=== PATIENT | male | born 1980 | race Caucasian/White ===

== ENCOUNTER 2016-12-20 05:56 | Emergency (ER) | payer SELFPAY ==
[~2016-12-20] VITALS: Ht 190.5 cm; Wt 130.0 kg
[~2016-12-20 05:56] MED LIST: ALBU8I INH; AMOX500T PO; IBUP400T20 PO; MEDR4PAK3 PO
[2016-12-20 06:09] VITALS: BP 161/107; PULSE 94; RESP 20; TEMP 98; O2SAT 96
[2016-12-20] MEDS ORDERED: HYDROmorphone HCL PF 1 MG/ML VIAL IV PUSH ONE (06:30)
[2016-12-20] MEDS ORDERED: ONDANSETRON HCL 4 MG/2 ML VIAL IVP ONE (06:30)
[2016-12-20] MEDS ORDERED: SODIUM CHLOR 0.9% 1000 ML INJ 1,000 ML IV SCH (06:30)
[2016-12-20] MEDS ORDERED: SODIUM CHLORIDE 0.9% FLUSH 5 ML FLUSH IVF PRN (06:30)
[2016-12-20 06:32] VITALS: O2SAT 96
--- NOTE | 2016-12-20 06:32 | PD ---
HPI Chief Complaint: Musculoskeletal Complaint Time Seen by Provider: 06:30 Travel History International Travel<30 days: No Contact w/Intl Traveler<30days: No Traveled to known affect area: No History of Present Illness HPI 36-year-old male presents to the emergency department for complaint of sudden onset right sided chest discomfort and shortness of breath. Patient denies history of DVT or PE. Patient denies recent long distance travel protracted bedrest her surgical procedure. Patient's had no recent swelling of the lower extremities, no hemoptysis and prior to this morning no pleuritic chest pain. Patient states he felt completely normal last evening prior to going to bed. Patient states that it was a taco Sunday, today and did drink alcoholic beverages. No prior history of gallbladder disease peptic ulcer disease gastritis or pancreatitis. Patient rates pain as 7/10 in intensity. Patient denies any fever or chills. No hematemesis no coffee-ground emesis no bilious emesis. Last bowel movement was yesterday and normal for him. No flank pain dysuria frequency or hematuria. No prior history of kidney stones. Patient denies any abdominal surgeries. Patient also denies known history of CAD, hypertension, dyslipidemia, diabetes, family history premature onset cardiac disease. Patient does admit to tobacco use alcohol use and occasional marijuana use. Patient is unable to identify exacerbating or alleviating factors. Brother with history of DVT after surgery. [facility] Past Medical History Narrative Medical Alcohol use tobacco use marijuana use; nursing notes reviewed Medical History: Denies Significant Hx Diminished Hearing: No Tetanus Vaccination: Unknown Influenza Vaccination: No Past Surgical History Surgical History: No Previous Surgery Social History Alcohol Use: Yes (Occasionally) Tobacco Use: Yes (1 ppd cigarettes) Substance Use: Yes (Leana ) Allergies-Medications (Allergen,Severity, Reaction): Coded Allergies: Codeine (Verified Allergy, Mild, 12/20/16) Reported Meds & Prescriptions Reported Meds & Active Scripts Active No Active Prescriptions or Reported Medications Review of Systems Except as stated in HPI: all other systems reviewed are Neg General / Constitutional: No: Fever, Chills HENT: No: Congestion Cardiovascular: Positive: Chest Pain or Discomfort Respiratory: Positive: Shortness of Breath, Pleuritic Pain, No: Wheezing, Hemoptysis Gastrointestinal: No: Nausea, Vomiting, Diarrhea, Abdominal Pain Genitourinary: No: Urgency, Frequency, Dysuria, Flank Pain Musculoskeletal: No: Myalgias, Arthralgias Skin: No Rash Neurologic: No: Weakness, Dizziness Psychiatric: No: Anxiety Endocrine: No: Heat Intolerance Hematologic/Lymphatic: No: Easy Bruising Physical Exam Narrative GENERAL: Well-developed well-nourished male in no acute distress no respiratory distress SKIN: Warm and dry. HEAD: Normocephalic. EYES: No scleral icterus. No injection or drainage. NECK: Supple, trachea midline. No JVD or lymphadenopathy. CARDIOVASCULAR: Regular rate and rhythm without murmurs, gallops, or rubs. RESPIRATORY: Breath sounds equal bilaterally. No accessory muscle use. GASTROINTESTINAL: Abdomen soft, reproducible right upper quadrant tenderness to palpation with clinical Tolbert sign, nondistended. No guarding no rebound. MUSCULOSKELETAL: No cyanosis, or edema. BACK: Nontender without obvious deformity. No CVA tenderness. Data Data Last Documented VS Vital Signs Date Time Temp Pulse Resp B/P Pulse Ox O2 Delivery O2 Flow Rate FiO2 12/20/16 06:32 96 Room Air 12/20/16 06:15 20 12/20/16 06:09 98.0 94 161/107 Orders Complete Blood Count With Diff (12/20/16 06:30) Comprehensive Metabolic Panel (12/20/16 06:30) Lipase (12/20/16 06:30) Iv Access Insert/Monitor (12/20/16 06:30) Ecg Monitoring (12/20/16 06:30) Oximetry (12/20/16 06:30) Ondansetron Inj (Zofran Inj) (12/20/16 06:30) Sodium Chlor 0.9% 1000 Ml Inj (Ns 1000 M (12/20/16 06:30) Sodium Chloride 0.9% Flush (Ns Flush) (12/20/16 06:30) Electrocardiogram (12/20/16 06:30) Chest, Single Ap (12/20/16 06:30) Hydromorphone Pf Inj (Dilaudid Pf Inj) (12/20/16 06:30) D-Dimer (12/20/16 06:48) MDM Medical Decision Making Medical Screen Exam Complete: Yes Emergency Medical Condition: Yes Medical Record Reviewed: Yes Interpretation(s) EKG normal sinus rhythm rate [address] elevation or injury pattern change noted CXR, portable: No infiltrate effusion or pneumothorax noted on review by me Differential Diagnosis Chest pain, pneumothorax, PE, biliary colic, pancreatitis, also to consider ACS and perforated viscus Narrative Course 36-year-old male presents to the emergency department with chest pain that awakened him from sleep radiating from his back to the right upper quadrant after fatty meal and alcohol consumption with soft nondistended tender abdomen in the right upper quadrant with reproducible clinical Tolbert sign. Lung sounds are clear bilaterally to auscultation. Concern for possible biliary colic, acute pancreatitis febrile also assess for pneumothorax ACS and PE. @ 0700 will sign over care to oncoming , Dr. Canales for follow-up on pending labs and imaging studies. Scripts No Active Prescriptions or Reported Meds Lara Garcia MD Dec 20, 2016 06:32
[2016-12-20 06:53] LABS: AUTOMATED NEUTROPHIL # 7.4 TH/MM3 (1.8-7.7); BASOPHIL # 0.1 TH/MM3 (0-0.2); BASOPHIL % 1.2 % (0.0-2.0); EOSINOPHIL # 0.2 TH/MM3 (0-0.4); EOSINOPHIL % 1.4 % (0.0-4.0); HEMATOCRIT 44.6 % (39.0-51.0); LYMPH % 29.7 % (9.0-44.0); LYMPHOCYTE # 3.6 TH/MM3 (1.0-4.8); MEAN CELL VOLUME 91.2 FL (80.0-100.0); MEAN CORPUSCULAR HEMOGLOBIN 30.4 PG (27.0-34.0); MEAN CORPUSCULAR HGB CONC 33.4 % (32.0-36.0); NEUT % 60.7 % (16.0-70.0); PLATELET COUNT 234 TH/MM3 (150-450); RED BLOOD COUNT 4.89 MIL/MM3 (4.50-5.90); RED CELL DISTRIBUTION WIDTH 13.8 % (11.6-17.2); WHITE BLOOD COUNT 12.2 TH/MM3 (4.0-11.0)
--- NOTE | 2016-12-20 06:57 | RADHPO ---
EXAM DATE/TIME: 12/20/2016 06:39 [facility] COMPARISON: No previous studies available for comparison. INDICATIONS : Shortness of breath. MEDICAL HISTORY : None. SURGICAL HISTORY : None. ENCOUNTER: Initial ACUITY: 1 day PAIN SCORE: 0/10 LOCATION: Bilateral chest FINDINGS: A single view of the chest demonstrates the lungs to be symmetrically, but under aerated without evid ence of mass, infiltrate or effusion. The cardiomediastinal contours are unremarkable. Osseous stru ctures are intact. CONCLUSION: Hypoinflation with no acute cardiopulmonary process. Stanislaw Levy MD on December 20, 2016 at 6:55 Board Certified Radiologist. This report was verified electronically.
[2016-12-20 07:03] LABS: CHLORIDE 104 MEQ/L (98-107); POTASSIUM 3.5 MEQ/L (3.5-5.1); SODIUM (NA) 140 MEQ/L (136-145)
[2016-12-20 07:06] VITALS: BP 171/80; PULSE 90; RESP 16; TEMP 97.9; O2SAT 96
[2016-12-20 07:07] LABS: ANION GAP 13 MEQ/L (5-15); BICARBONATE 23.3 MEQ/L (21.0-32.0); BLOOD UREA NITROGEN 16 MG/DL (7-18)
[2016-12-20 07:10] LABS: ALT (GPT) 32 U/L (12-78); AST (GOT) 16 U/L (15-37); GLOMERULAR FILTRATION RATE 96 ML/MIN (>89)
[2016-12-20 07:12] LABS: TOTAL BILIRUBIN ADULT 0.2 MG/DL (0.2-1.0)
[2016-12-20 07:13] LABS: ALKALINE PHOSPHATASE 78 U/L (45-117)
[2016-12-20 07:22] LABS: HEMO FLAGS DIFF FINAL
[2016-12-20] MEDS ORDERED: IOHEXOL 350 MG/ML 10 ML VIAL (for RAD DIAG) IV ONE (08:01)
--- NOTE | 2016-12-20 08:07 | RADHPO ---
EXAM DATE/TIME: 12/20/2016 07:44 [facility] COMPARISON: CHEST SINGLE AP, December 20, 2016, 6:39. INDICATIONS : Right sided back pain radiating to right upper quadrant. Evaluate for pulmonary embolism. IV CONTRAST: 100 cc Omnipaque 350 (iohexol) IV ; Cumulative dose for multiple exams. RADIATION DOSE: 24.22 CTDIvol (mGy) MEDICAL HISTORY : None SURGICAL HISTORY : None. ENCOUNTER: Initial ACUITY: 2 days PAIN SCALE: 4/10 LOCATION: Right upper quadrant TECHNIQUE: Volumetric scanning of the chest was performed using a pulmonary embolism protocol MIP images were re constructed. Using automated exposure control and adjustment of the mA and/or kV according to patien t size, radiation dose was kept as low as reasonably achievable to obtain optimal diagnostic quality images. FINDINGS: PULMONARY ARTERIES: No filling defects are seen in the pulmonary arteries through the segmental level. LUNGS: There is no consolidation or pneumothorax . No concerning pulmonary nodule is visualized. There is a telectasis in the dependent lung bases. PLEURAE: There is no pleural thickening or pleural effusion. MEDIASTINUM: There is good visualization of the great vessels of the middle mediastinum. No evidence of mediastin al or hilar adenopathy/mass. MUSCULOSKELETAL: Within normal limits for patient age. MISCELLANEOUS: The visualized upper abdominal organs demonstrate no acute abnormality. CONCLUSION: Negative exam with no evidence of pulmonary embolism. Murali Gordon MD on December 20, 2016 at 8:04 Board Certified Radiologist. This report was verified electronically.
--- NOTE | 2016-12-20 08:14 | RADHPO ---
EXAM DATE/TIME: 12/20/2016 07:44 [facility] COMPARISON: No previous studies available for comparison. INDICATIONS : Right sided back pain radiating to right upper quadrant. IV CONTRAST: 100 cc Omnipaque 350 (iohexol) IV ; Cumulative dose for multiple exams. ORAL CONTRAST: No oral contrast ingested. RADIATION DOSE: 22.01 CTDIvol (mGy) MEDICAL HISTORY : None SURGICAL HISTORY : None. ENCOUNTER: Initial ACUITY: 2 days PAIN SCALE: 4/10 LOCATION: Right TECHNIQUE: Volumetric scanning of the abdomen and pelvis was performed. Using automated exposure control and ad justment of the mA and/or kV according to patient size, radiation dose was kept as low as reasonably achievable to obtain optimal diagnostic quality images. FINDINGS: LOWER LUNGS: The visualized lower lungs are clear. LIVER: Homogeneous density without lesion. There is no dilation of the biliary tree. No calcified gallston es. SPLEEN: Normal size without lesion. PANCREAS: Within normal limits. KIDNEYS: Normal in size and shape. There is no mass, stone or hydronephrosis. ADRENAL GLANDS: Within normal limits. VASCULAR: There is no aortic aneurysm. There is mild atherosclerotic calcification in the right common iliac ar khai. BOWEL/MESENTERY: The stomach, small bowel, and colon demonstrate no acute abnormality. There is no free intraperitone al air or fluid. The appendix is normal. ABDOMINAL WALL: Within normal limits. RETROPERITONEUM: There is no lymphadenopathy. BLADDER: No wall thickening or mass. REPRODUCTIVE: Within normal limits. INGUINAL: There is no lymphadenopathy or hernia. MUSCULOSKELETAL: No acute osseous abnormality is identified. CONCLUSION: No acute finding is identified within the abdomen or pelvis. Virgilio Reynolds MD on December 20, 2016 at 8:09 Board Certified Radiologist. This report was verified electronically.
[2016-12-20 08:48] VITALS: BP 160/65; PULSE 64; RESP 16; O2SAT 95
[2016-12-20 09:09] VITALS: RESP 16; O2SAT 96
[2016-12-20] MEDS ORDERED: PERC5TAB12 PO (09:10)
--- NOTE | 2016-12-20 09:23 | PD ---
Data Data Last Documented VS Vital Signs Date Time Temp Pulse Resp B/P Pulse Ox O2 Delivery O2 Flow Rate FiO2 12/20/16 09:09 16 96 Room Air 12/20/16 08:48 64 160/65 2 12/20/16 07:06 97.9 Orders Complete Blood Count With Diff (12/20/16 06:30) Comprehensive Metabolic Panel (12/20/16 06:30) Lipase (12/20/16 06:30) Iv Access Insert/Monitor (12/20/16 06:30) Ecg Monitoring (12/20/16 06:30) Oximetry (12/20/16 06:30) Ondansetron Inj (Zofran Inj) (12/20/16 06:30) Sodium Chlor 0.9% 1000 Ml Inj (Ns 1000 M (12/20/16 06:30) Sodium Chloride 0.9% Flush (Ns Flush) (12/20/16 06:30) Electrocardiogram (12/20/16 06:30) Chest, Single Ap (12/20/16 06:30) Hydromorphone Pf Inj (Dilaudid Pf Inj) (12/20/16 06:30) D-Dimer (12/20/16 06:48) Ct Pulmonary Angiogram (12/20/16 ) Ct Abd/Pel W Iv Contrast(Rout) (12/20/16 ) Iohexol 350 Inj (Omnipaque 350 Inj) (12/20/16 08:01) Labs Laboratory Tests Test 12/20/16 12/20/16 06:20 07:00 White Blood Count 12.2 TH/MM3 Red Blood Count 4.89 MIL/MM3 Hemoglobin 14.9 GM/DL Hematocrit 44.6 % Mean Corpuscular Volume 91.2 FL Mean Corpuscular Hemoglobin 30.4 PG Mean Corpuscular Hemoglobin 33.4 % Concent Red Cell Distribution Width 13.8 % Platelet Count 234 TH/MM3 Mean Platelet Volume 10.0 FL Neutrophils (%) (Auto) 60.7 % Lymphocytes (%) (Auto) 29.7 % Monocytes (%) (Auto) 7.0 % Eosinophils (%) (Auto) 1.4 % Basophils (%) (Auto) 1.2 % Neutrophils # (Auto) 7.4 TH/MM3 Lymphocytes # (Auto) 3.6 TH/MM3 Monocytes # (Auto) 0.9 TH/MM3 Eosinophils # (Auto) 0.2 TH/MM3 Basophils # (Auto) 0.1 TH/MM3 CBC Comment DIFF FINAL Differential Comment Sodium Level 140 MEQ/L Potassium Level 3.5 MEQ/L Chloride Level 104 MEQ/L Carbon Dioxide Level 23.3 MEQ/L Anion Gap 13 MEQ/L Blood Urea Nitrogen 16 MG/DL Creatinine 0.90 MG/DL Estimat Glomerular Filtration 96 ML/MIN Rate Random Glucose 110 MG/DL Calcium Level 8.7 MG/DL Total Bilirubin 0.2 MG/DL Aspartate Amino Transf 16 U/L (AST/SGOT) Alanine Aminotransferase 32 U/L (ALT/SGPT) Alkaline Phosphatase 78 U/L Total Protein 7.5 GM/DL Albumin 3.7 GM/DL Lipase 165 U/L D-Dimer Quantitative (PE/DVT) 0.20 MG/L FEU MDM Supervised Visit with ULISES: No Narrative Course This case is checked out to me by Dr. Garcia at 7 AM. This patient had right sided pain in the torso and of near the border of chest and abdomen and the diagnosis was unclear so she ordered CT of both chest and abdomen and pelvis to rule out emergent thing. I reviewed the entirety of the workup with the patient and answered his questions. His labs are normal and chest x-ray negative. CTA is negative for PE. CT of abdomen and pelvis is also negative for any significant problem. So the etiology is not entirely clear. However he is stable for outpatient follow-up. I wrote him some Percocet for pain relief. He will follow up with his primary physician Diagnosis Primary Impression: Pleuritic chest pain Additional Impression: Right upper quadrant abdominal pain Patient Instructions: General Instructions Departure Forms: Tests/Procedures Additional Instruction: The patient was advised to follow up with their physician and return if they worsen. The patient was warned about potential sedation for the medications they will receive on prescription. Med/Other Pt SpecificInfo: Prescription(s) given Scripts Oxycodone-Acetaminophen (Percocet)5-325 mg Tab1 Tab PO Q6H PRN (PAIN) #20 TAB Ref 0 Prov:Adria Canales MD 12/20/16 Disposition: 01 DISCHARGE HOME Condition: Stable Adria Canales MD Dec 20, 2016 09:23
--- NOTE | 2016-12-20 18:30 | EKG ---
Date Performed: 12/20/2016 Time Performed: 06:39:48 PTAGE: 36 years EKG: Sinus rhythm . Normal ECG NO PREVIOUS TRACING DOCTOR: Reese David Interpretating Date/Time 12/20/2016 18:28:53
== END 2016-12-20 09:34 | disposition home or self-care (01) ==
LOC: PHED 05:56
DX: R07.81 Pleurodynia (principal); R10.11 Right upper quadrant pain; R06.02 Shortness of breath
CPT/HCPCS: 71010; 71275; 74177; 80053; 83690; 85025; 85379; 93005; 96361; 96374; 96375; 99285; J1170; J2405; J7030; Q9967